=== PATIENT | female | born 1995 | race American Indian/Alaskan Native ===

== ENCOUNTER 2019-04-09 20:10 | Emergency (ER) | payer MEDICAID ==
--- NOTE | 2019-04-09 21:07 | Event Note ---
ED Screening Note ED Screening Note: pt is currently 17 weeks states she is having suprapubic abd pain +vaginal discharge, clear/white no vaginal discharge no vaginal itching/no vaginal irritation +lower back pain states she has had swelling in the hands and feet /P:2/A:0 This initial assessment/diagnostic orders/clinical plan/treatment(s) is/are subject to change based on patients health status, clinical progression and re- assessment by fellow clinical providers in the ED. Further treatment and workup at subsequent clinical providers discretion. Patient/guardian urged not to elope from the ED as their condition may be serious if not clinically assessed and managed. Initial orders include: labs, UA, OB US
[2019-04-09 21:08] VITALS: BP 100/67
[2019-04-09 22:00] LABS: Bacteria,Urine 1+ /HPF (Negative); Bilirubin,Urine NEG (Negative); Blood,Urine NEG (Negative); Color,Urine Yellow (Yellow); Mucus,Urine 2+ /HPF; Protein,Urine <15 mg/dL mg/dL (Negative); Urobilinogen,Urine < 2.0 mg/dL (<2.0)
[2019-04-09 22:04] LABS: Basophils % (Auto) 0.5 % (0.0-1.8); Eosinophils # (Auto) 0.1 K/mm3 (0.0-0.4); Eosinophils % (Auto) 1.6 % (0.0-4.3); Hematocrit 30.9 % (30.3-42.9); Lymphocytes # (Auto) 1.9 K/mm3 (1.2-5.4); Lymphocytes % (Auto) 24.3 % (13.4-35.0); Mean Corpuscular HGB Conc 36 % (30-34); Mean Corpuscular Volume 97 fl (79-97); Monocytes # (Auto) 0.5 K/mm3 (0.0-0.8); Monocytes % (Auto) 6.1 % (0.0-7.3); Platelet Count 219 K/mm3 (140-440); Red Blood Count 3.18 M/mm3 (3.65-5.03)
[2019-04-09 22:57] LABS: Alanine Aminotransferase 8 units/L (7-56); Albumin 3.4 g/dL (3.9-5); BUN/Creatinine Ratio 13; Blood Urea Nitrogen 8 mg/dL (7-17); Calcium 8.7 mg/dL (8.4-10.2); Hemolysis Index 3
--- NOTE | 2019-04-09 23:17 | Ultrasound Report ---
US OB >= 14 weeks Fetus INDICATION / CLINICAL INFORMATION: , abd pain. Early . COMPARISON: None available. FINDINGS: Single, viable intrauterine . heart rate 143. Biparietal diameter 3.84 cm, 17 weeks 5 days. Head circumference 14.6 cm, 17 weeks 5 days. Abdominal circumference 11.9 cm, 17 weeks 4 days. Femur length 2.5 cm, 17 weeks 3 days. Estimated body weight 201 g. Cervical length 3.3 cm. Amniotic fluid volume appears normal. IMPRESSION: 1. Single, viable intrauterine of 17 weeks 4 days. Signer Name: Robert Toney MD Signed: 04/09/2019 11:13 PM Workstation Name: [id number]
--- NOTE | 2019-04-09 23:42 | Emergency Department Report ---
HPI - General Chief Complaint: Abdominal Pain Time Seen by Provider: 04/09/19 21:04 - HPI HPI: 24-year-old female at 16 with presenting with leg swelling, back pain, bilateral side discomfort, no fever, chills or night sweats. ED Past Medical Hx - Past Medical History Previous Medical History?: No Hx Hypertension: No Hx Congestive Heart Failure: No Hx Diabetes: No Hx Deep Vein Thrombosis: No Hx Renal Disease: No Hx Sickle Cell Disease: No Hx Seizures: No Hx Asthma: No Hx COPD: No Hx HIV: No - Surgical History Past Surgical History?: No - Social History Smoking Status: Never Smoker Substance Use Type: None - Medications Home Medications: Home Medications Medication Instructions Recorded Confirmed Last Taken Type Ferrous Sulfate [Iron Supplement] 1 tab PO TID 11/16/13 04/01/15 03/31/15 19:00 History 1 tab Vit No.126/Iron/Folic 1 each PO DAILY 11/16/13 04/01/15 04/01/15 10:00 History [Classic Tablet] 1 tab Ferrous Sulfate [Feosol 325 MG tab] 325 mg PO BID #60 tablet 11/19/13 04/01/15 Unknown Rx Ibuprofen [Motrin 600 MG tab] 800 mg PO Q8H PRN #30 tablet 11/19/13 04/01/15 Unknown Rx Vit-Fe Fumar-FA [ 1 each PO QDAY #30 tablet 11/19/13 04/01/15 Unknown Rx Vitamin] ED Review of Systems ROS: Stated complaint: 16WKS PREG LOWER ABDOMINAL/TAILBONE PAIN Other details as noted in HPI Comment: All other systems reviewed and negative Constitutional: denies: chills ENT: denies: ear pain Respiratory: denies: cough Cardiovascular: denies: as per HPI, chest pain, palpitations Gastrointestinal: abdominal pain, nausea Musculoskeletal: joint swelling Physical Exam - Physical Exam Vital Signs: Vital Signs 04/09/19 21:05 Temperature 98.7 F Pulse Rate 56 L Respiratory 18 Rate Blood Pressure 100/67 O2 Sat by Pulse 96 Oximetry Physical Exam: Physical Exam: - General Limitations: No Limitations General appearance: alert, in no apparent distress. - Head Head exam: Present: atraumatic, normocephalic - Eye Eye exam: Present: normal appearance - ENT ENT exam: Present: mucous membranes moist - Neck Neck exam: Present: normal inspection - Respiratory Respiratory exam: Present: normal lung sounds bilaterally. Absent: respiratory distress - Cardiovascular Cardiovascular Exam: Present: normal rhythm,. Absent: systolic murmur, diastolic murmur, rubs, gallop - GI/Abdominal GI/Abdominal exam: Present: soft, normal bowel sounds, gravid uterus - Extremities Exam Extremities exam: Present: normal inspection - Back Exam Back exam: Present: normal inspection - Neurological Exam Neurological exam: Present: alert, oriented X3 - Psychiatric Psychiatric exam: normal affect and mood - Skin Skin exam: Present: warm, dry, intact, normal color. Absent: rash ED Course Vital Signs 04/09/19 21:05 Temperature 98.7 F Pulse Rate 56 L Respiratory 18 Rate Blood Pressure 100/67 O2 Sat by Pulse 96 Oximetry ED Medical Decision Making - Lab Data Result diagrams: 04/09/19 21:36 04/09/19 21:36 Critical care attestation.: If time is entered above; I have spent that time in minutes in the direct care of this critically ill patient, excluding procedure time. ED Disposition Clinical Impression: Peripheral edema Headache Qualifiers: Headache type: tension-type Headache chronicity pattern: acute headache Intractability: not intractable Qualified Code(s): G44.209 - Tension-type headache, unspecified, not intractable Disposition: DC-01 TO HOME OR SELFCARE Is pt being admited?: No Does the pt Need Aspirin: No Condition: Stable Instructions: Abdominal Pain (ED) Referrals: MARJ FIERRO MD [Primary Care Provider] - 3-5 Days Forms: Work/School Release Form(ED)
== END 2019-04-09 23:50 | disposition home or self-care (01) ==
LOC: ED 20:10
DX: O26.892 Other specified pregnancy related conditions, second trimester (principal); R60.0 Localized edema; R51 Headache; Z3A.17 17 weeks gestation of pregnancy; Z79.899 Other long term (current) drug therapy; Z91.010 Allergy to peanuts
CPT/HCPCS: 36415; 76805; 80053; 81001; 85025; 99284

== ENCOUNTER 2019-06-15 15:51 | Outpatient (CLI) | payer MEDICAID ==
[2019-06-15] MEDS ORDERED: LACTATED RINGERS 500 ML IV ONE (15:56)
[2019-06-15 16:32] LABS: Bilirubin,Urine NEG (Negative); Blood,Urine NEG (Negative); Color,Urine Yellow (Yellow); Mucus,Urine 3+ /HPF; Urobilinogen,Urine < 2.0 mg/dL (<2.0)
[2019-06-15 17:15] LABS: Amphetamine Screen,Urine PRESUMPTIVE NEGATIVE; Benzodiazepines Screen,Urine PRESUMPTIVE NEGATIVE; Cocaine Screen,Urine PRESUMPTIVE NEGATIVE; Methadone Screen,Urine PRESUMPTIVE NEGATIVE; Opiate Screen,Urine PRESUMPTIVE NEGATIVE
[2019-06-15] MEDS: LACTATED RINGERS 1,000 ML IV SCH ×2 (17:48→19:05)
[2019-06-15 17:58] LABS: Hematocrit 31.7 % (30.3-42.9); Mean Corpuscular HGB Conc 35 % (30-34); Mean Corpuscular Volume 98 fl (79-97); Platelet Count 268 K/mm3 (140-440); Red Blood Count 3.24 M/mm3 (3.65-5.03)
[2019-06-15 18:03] LABS: Cannabinoid Screen,Urine PRESUMPTIVE POSITIVE
[2019-06-15] MEDS ORDERED: AMPICILLIN/NS 2 GM/100 ML 2 GM/100 ML BAG IV ONE (18:19)
[2019-06-15 18:21] LABS: Alanine Aminotransferase 8 units/L (7-56); Uric Acid 3.4 mg/dL (3.5-7.6)
[2019-06-15 20:32] VITALS: BP 124/70
== END 2019-06-15 20:45 | disposition home or self-care (01) ==
LOC: TRG 15:51
PROVIDERS: ATTEND Obstetrics & Gynecology
DX: O26.892 Other specified pregnancy related conditions, second trimester (principal); R51 Headache; R10.30 Lower abdominal pain, unspecified; Z3A.26 26 weeks gestation of pregnancy
CPT/HCPCS: 36415; 59025; 80307; 81001; 82565; 83615; 84450; 84460; 84550; 85027; 96361; 96365; J0290; J7120; 96360

== ENCOUNTER 2019-08-14 19:07 | Outpatient (CLI) | payer MEDICAID ==
[2019-08-14] MEDS ORDERED: LACTATED RINGERS 1,000 ML IV ONE (20:04)
[2019-08-14] MEDS ORDERED: LACTATED RINGERS 1,000 ML ONE (20:05)
[2019-08-14 20:14] LABS: Bacteria,Urine 1+ /HPF (Negative); Bilirubin,Urine NEG (Negative); Blood,Urine NEG (Negative); Color,Urine Yellow (Yellow); Protein,Urine <15 mg/dL mg/dL (Negative); Urobilinogen,Urine < 2.0 mg/dL (<2.0); WBC,Urine < 1.0 /HPF (0.0-6.0)
[2019-08-14 20:22] LABS: RBC,Urine < 1.0 /HPF (0.0-6.0)
[2019-08-14] MEDS ORDERED: TERBUTALINE 1 MG/1 ML INJ SUB-Q ONE (21:45)
[2019-08-14] MEDS ORDERED: ACETAMINOPHEN 500 MG TAB PO ONE (21:46)
[2019-08-14] MEDS ORDERED: TERBUTALINE 1 MG/1 ML INJ ONE (21:50)
[2019-08-14] MEDS ORDERED: TERBUTALINE 1 MG/1 ML INJ SUB-Q PRN (22:33)
[2019-08-15 01:32] VITALS: BP 120/66
== END 2019-08-15 00:50 | disposition home or self-care (01) ==
LOC: TRG 19:07
PROVIDERS: ATTEND Obstetrics & Gynecology
DX: O26.893 Other specified pregnancy related conditions, third trimester (principal); M54.5 Low back pain; R10.30 Lower abdominal pain, unspecified; M79.659 Pain in unspecified thigh; Z3A.35 35 weeks gestation of pregnancy
CPT/HCPCS: 59025; 81001; 96360; 96372; J3105; J7120; 96361; Q0177

== ENCOUNTER 2019-08-25 19:10 | Outpatient (CLI) | payer MEDICAID ==
[2019-08-25] MEDS ORDERED: LACTATED RINGERS 500 ML IV ONE (21:00)
[2019-08-25] MEDS ORDERED: ONDANSETRON 4 MG/2 ML INJ IV ONE (21:20)
[2019-08-25 21:29] LABS: Bilirubin,Urine NEG (Negative); Blood,Urine NEG (Negative); Color,Urine Yellow (Yellow); Mucus,Urine FEW /HPF; Protein,Urine <15 mg/dL mg/dL (Negative)
[2019-08-25 21:38] VITALS: BP 120/79
[2019-08-25] MEDS ORDERED: fentaNYL 100 MCG/2 ML INJ IV ONE (22:12)
== END 2019-08-26 02:05 | disposition home or self-care (01) ==
LOC: TRG 19:10
PROVIDERS: ATTEND Obstetrics & Gynecology
DX: O62.9 Abnormality of forces of labor, unspecified (principal); O26.893 Other specified pregnancy related conditions, third trimester; M54.9 Dorsalgia, unspecified; R10.2 Pelvic and perineal pain; Z3A.36 36 weeks gestation of pregnancy
CPT/HCPCS: 81001; 96361; 96374; 96375; J2405; J3010; J7120

== ENCOUNTER 2019-09-08 20:49 | Outpatient (CLI) | payer MEDICAID ==
[2019-09-08 21:41] LABS: Bilirubin,Urine NEG (Negative); Blood,Urine NEG (Negative); Color,Urine Yellow (Yellow); Mucus,Urine FEW /HPF; Protein,Urine <15 mg/dL mg/dL (Negative)
[2019-09-08 22:16] VITALS: BP 111/67
== END 2019-09-08 23:39 | disposition home or self-care (01) ==
LOC: TRG 20:49
PROVIDERS: ATTEND Obstetrics & Gynecology
DX: O47.1 False labor at or after 37 completed weeks of gestation (principal); Z3A.38 38 weeks gestation of pregnancy
CPT/HCPCS: 59025; 81001

== ENCOUNTER 2020-01-23 11:17 | Emergency (ER) | payer MEDICAID ==
[2020-01-23 11:29] VITALS: BP 122/76
[2020-01-23] MEDS ORDERED: KETOROLAC 30 MG/1 ML INJ IM ONE (12:14)
[2020-01-23] MEDS ORDERED: ONDANSETRON 4 MG ODT TAB PO ONE (12:14)
--- NOTE | 2020-01-23 12:22 | Emergency Department Report ---
ED Headache HPI - General Chief Complaint: Headache Stated Complaint: SOB/FLU SX Time Seen by Provider: 01/23/20 11:40 Source: patient, RN notes reviewed Exam Limitations: no limitations - History of Present Illness Initial Comments: This is a 24-year-old -[place] female who presents to the emergency room with chest pain and headache for 3 days. Patient reports chest pain and headache for 3 days. She had a virtual appointment with [facility] yesterday and tested for coronavirus today. Reports shortness of breath is with exertion. Patient states she was instructed to wait 48 hours for testing and to remain quarantined for 7 to 14 days by [facility]. Denies prior history of asthma. Denies recent contact with a positive coronavirus patient. Denies fever, chills, wheezing, myalgia, sore throat, nausea, vomiting, diarrhea, or abdominal pain. Timing/Duration: 24 hours Quality: pressure, throbbing Head Injury Location: frontal Recent Head Trauma: occasional headaches Associated Symptoms: denies: denies symptoms, confusion, fatigue, facial pain, fever/chills, flushing, loss of consciousness, nausea/vomiting, nasal congestion, nasal drainage, numbness in legs/feet, rash, seizures, sinus infection, stiff neck, vision changes, weakness, other Allergies/Adverse Reactions: Allergies peanut Allergy (Severe, Verified 08/14/19 19:44) Anaphylaxis Home Medications: Ambulatory Orders Ferrous Sulfate [Iron Supplement] 1 tab PO TID 11/16/13 Vit No.126/Iron/Folic [Classic Tablet] 1 each PO DAILY 11/16/13 Ferrous Sulfate [Feosol 325 MG tab] 325 mg PO BID #60 tablet 11/19/13 Ibuprofen [Motrin 600 MG tab] 800 mg PO Q8H PRN #30 tablet 11/19/13 Vit-Fe Fumar-FA [ Vitamin] 1 each PO QDAY #30 tablet 11/19/13 ED Review of Systems ROS: Stated complaint: SOB/FLU SX Other details as noted in HPI Constitutional: denies: chills, fever Respiratory: SOB with exertion. denies: cough, wheezing Cardiovascular: chest pain. denies: palpitations Gastrointestinal: denies: abdominal pain, nausea, diarrhea Musculoskeletal: denies: back pain, joint swelling, arthralgia Skin: denies: rash, lesions Neurological: headache. denies: weakness, paresthesias Psychiatric: denies: anxiety, depression ED Past Medical Hx - Past Medical History Previous Medical History?: No Hx Hypertension: No Hx Congestive Heart Failure: No Hx Diabetes: No Hx Deep Vein Thrombosis: No Hx Renal Disease: No Hx Sickle Cell Disease: No Hx Seizures: No Hx Asthma: No Hx COPD: No Hx HIV: No - Surgical History Past Surgical History?: No - Social History Smoking Status: Never Smoker Substance Use Type: Alcohol - Medications Home Medications: Home Medications Medication Instructions Recorded Confirmed Last Taken Type Ferrous Sulfate [Iron Supplement] 1 tab PO TID 11/16/13 04/01/15 03/31/15 19:00 History 1 tab Vit No.126/Iron/Folic 1 each PO DAILY 11/16/13 04/01/15 04/01/15 10:00 History [Classic Tablet] 1 tab Ferrous Sulfate [Feosol 325 MG tab] 325 mg PO BID #60 tablet 11/19/13 04/01/15 Unknown Rx Ibuprofen [Motrin 600 MG tab] 800 mg PO Q8H PRN #30 tablet 11/19/13 04/01/15 Unknown Rx Vit-Fe Fumar-FA [ 1 each PO QDAY #30 tablet 11/19/13 04/01/15 Unknown Rx Vitamin] ED Physical Exam - General Limitations: No Limitations General appearance: alert, in no apparent distress, obese - ENT ENT exam: Present: mucous membranes moist - Neck Neck exam: Present: normal inspection - Respiratory Respiratory exam: Present: normal lung sounds bilaterally. Absent: respiratory distress, wheezes, rales, rhonchi, stridor, chest wall tenderness - Cardiovascular Cardiovascular Exam: Present: regular rate, normal rhythm. Absent: systolic murmur, diastolic murmur, rubs, gallop - GI/Abdominal GI/Abdominal exam: Present: soft, normal bowel sounds. Absent: distended, tenderness, guarding, rebound, rigid, organomegaly - Extremities Exam Extremities exam: Present: normal inspection - Back Exam Back exam: Present: normal inspection - Neurological Exam Neurological exam: Present: alert, oriented X3, normal gait - Expanded Neurological Exam Expanded Patient oriented to: Present: person, place, time Speech: Present: fluid speech Cranial nerves: EOM's Intact: Normal, Gag Reflex: Normal, Tongue Deviation: Normal, Nystagmus: Normal, Facial Sensation: Normal, Facial Palsy with Forehead Movement: Normal, Facial Palsy without Forehead Movement: Normal Cerebellar function: Finger to Nose: Normal Motor strength exam: RUE: 5, LUE: 5 Best Eye Response (Casandra): (4) open spontaneously Best Motor Response (Yreka): (6) obeys commands Best Verbal Response (Casandra): (5) oriented Casandra Total: 15 - Psychiatric Psychiatric exam: Present: normal affect, normal mood - Skin Skin exam: Present: warm, dry, intact, normal color. Absent: rash ED Course Vital Signs 01/23/20 01/23/20 11:26 12:23 Temperature 98.3 F Pulse Rate 82 Respiratory 16 18 Rate Blood Pressure 122/76 O2 Sat by Pulse 99 Oximetry ED Medical Decision Making - EKG Data -: No EKG Interpreted by Me (EKG interpreted by attending) EKG shows normal: sinus rhythm Rate: normal - Radiology Data Radiology results: report reviewed CHEST 2 VIEWS INDICATION: Shortness of breath and chest pain. COMPARISON: None FINDINGS: Support devices: None. Heart: Within normal limits. Lungs/pleura: No acute air space or interstitial disease. No pneumothorax. Additional findings: None. IMPRESSION: 1. No acute findings. - Medical Decision Making 24 y.o. female that presents with headache, chest pain, and shortness of breath for 3 days. Denies drug use, asthma, palpations, fever, or dyspnea. No significant past medical history. Vitals stable. Obtained EKG and chest xray. EKG interpreted by attending with no overt evidence of STEMI. Chest x-ray negative for acute cardiopulmonary findings. Due to work-up and exam there is low suspicion for acute coronary syndrome, pulmonary embolus, pneumothorax, or aortic dissection, or other emergent problems. Patient seen by [facility] today pending coronavirus testing. Analgesics given. Patient's pain was controlled prior to discharge and well appearing. Instructed to continue 14-day quarantine as advised by the [facility]. Take Tylenol for pain. Discharged home stable. Follow up with PCP in 24-48 hours. Given strict return instructions. Critical care attestation.: If time is entered above; I have spent that time in minutes in the direct care of this critically ill patient, excluding procedure time. ED Disposition Clinical Impression: Dyspnea Qualifiers: Dyspnea type: dyspnea on exertion Qualified Code(s): R06.00 - Dyspnea, unspecified Chest pain Qualifiers: Chest pain type: chest pain on breathing Qualified Code(s): R07.1 - Chest pain on breathing; R07.81 - Pleurodynia Headache Qualifiers: Headache type: tension-type Headache chronicity pattern: acute headache Intractability: not intractable Qualified Code(s): G44.209 - Tension-type headache, unspecified, not intractable Disposition: DC- TO HOME OR SELFCARE Is pt being admited?: No Condition: Stable Instructions: Chest Pain (ED), Tension Headache (ED) Additional Instructions: Remain on quarantine from others for 14 days is indicated by your primary care doctor. Make sure you follow-up in 48 hours for your coronavirus results from [facility]. Return to the emergency room if worsening symptoms a increased shortness of breath, chest pain, worsening headache, body aches, or fever. Referrals: SARAI ANTONIO MD [Staff Physician] - 3-5 Days MARJ FIERRO MD [Staff Physician] - 3-5 Days Time of Disposition: 13:53
--- NOTE | 2020-01-23 13:20 | XRay Report ---
CHEST 2 VIEWS INDICATION: Shortness of breath and chest pain. COMPARISON: None FINDINGS: Support devices: None. Heart: Within normal limits. Lungs/pleura: No acute air space or interstitial disease. No pneumothorax. Additional findings: None. IMPRESSION: 1. No acute findings. Signer Name: Rigo Dominguez MD Signed: 01/23/2020 1:15 PM Workstation Name: [id number]
== END 2020-01-23 14:03 | disposition home or self-care (01) ==
LOC: ED 11:17
DX: R06.00 Dyspnea, unspecified (principal); R07.89 Other chest pain; R51 Headache; Z79.1 Long term (current) use of non-steroidal anti-inflammatories (NSAID); Z79.899 Other long term (current) drug therapy; Z91.010 Allergy to peanuts
CPT/HCPCS: 71046; 93005; 96372; 99283; J1885; Q0162